=== PATIENT | female | born 1985 | race Asian ===

== ENCOUNTER 2022-12-12 10:21 | Emergency (ER) | payer OTHER ==
[~2022-12-12] VITALS: Ht 162.6 cm; Wt 108.0 kg
[2022-12-12 10:25] VITALS: BP 147/83; TEMP 97.2
[2022-12-12 11:15] LABS: PLATELET COUNT 448 K/uL (152-353)
[2022-12-12 11:26] LABS: POTASSIUM 3.7 mmol/L (3.6-5.2)
== END 2022-12-12 13:05 | disposition home or self-care (01) ==
LOC: ED 10:21
PROVIDERS: Emergency Medicine
DX: R10.32 Left lower quadrant pain (principal)
CPT/HCPCS: 36415; 80053; 81002; 81025; 85027; 96360; 99284; Q9963